=== PATIENT | female | born 1990 | race Caucasian/White ===

== ENCOUNTER 2016-09-06 10:33 | Emergency (ER) | payer SELFPAY ==
[~2016-09-06] VITALS: Ht 172.7 cm; Wt 65.0 kg
[~2016-09-06 10:33] MED LIST: ANAP550T PO; PERI8.6T PO; PRENTAB62 PO; TUMS500C CHEW
[2016-09-06 10:45] VITALS: BP 121/77; PULSE 84; RESP 14; TEMP 98.2; O2SAT 100
[2016-09-06] MEDS ORDERED: SODIUM CHLORIDE 0.9% FLUSH 5 ML FLUSH IVF PRN (11:15)
[2016-09-06] MEDS ORDERED: KETOROLAC TROMETHAMINE 30 MG/ML (IVP) VIAL IVP ONE (11:15)
--- NOTE | 2016-09-06 11:19 | PD ---
HPI Chief Complaint: Abdominal Pain Time Seen by Provider: 10:58 Travel History International Travel<30 days: No Contact w/Intl Traveler<30days: No Traveled to known affect area: No History of Present Illness HPI The patient is a 25-year-old female who presents to the emergency department for right rib pain and right upper quadrant abdominal pain of one month's duration. Patient complains of pain located over the lateral right inferior rib cage and right upper quadrant for one month. The pain is worse with standing upright, deep inspiration, certain movements. Patient denies any trauma to the affected area, however, does complain of shortness of breath secondary to pain with inspiration over the affected side. She denies any anterior chest pain or left-sided chest pain. She denies any nausea, vomiting, or postprandial symptoms. The patient denies any accompanying cough. The patient denies any known history of nephrolithiasis or cholecystitis. Symptoms are mild to moderate, no true alleviating factors, slightly exacerbated by movements and inspiration. PFSH Past Medical History Autoimmune Disease: No Blood Disorders: No Anxiety: No Depression: No Cardiovascular Problems: No Genitourinary: No Musculoskeletal: No Neurologic: No Psychiatric: No Respiratory: No Sickle Cell Disease: No ?: Not LMP: 1 1/2 WKS AGO : 0 Past Surgical History Other Surgery: No Social History Alcohol Use: No Tobacco Use: No Substance Use: No Allergies-Medications (Allergen,Severity, Reaction): Coded Allergies: No Known Allergies (Verified , 09/06/16) Reported Meds & Prescriptions Reported Meds & Active Scripts Active No Active Prescriptions or Reported Medications Review of Systems Except as stated in HPI: all other systems reviewed are Neg General / Constitutional: No: Fever HENT: No: Lightheadedness Cardiovascular: Positive: Chest Pain or Discomfort (right lateral inferior rib pain) Respiratory: No: Cough, Shortness of Breath Gastrointestinal: Positive: Abdominal Pain (right upper quadrant abdominal pain ), No: Nausea, Vomiting, Diarrhea Genitourinary: No: Dysuria, Hematuria Skin: No Rash Physical Exam Narrative GENERAL: Awake, alert, pleasant 25-year-old female who appears her stated age and is in no acute respiratory distress. SKIN: Warm and dry. HEAD: Atraumatic. Normocephalic. EYES: Pupils equal and round. No scleral icterus. No injection or drainage. ENT: No nasal bleeding or discharge. Mucous membranes pink and moist. NECK: Trachea midline. No JVD. CARDIOVASCULAR: Regular rate and rhythm. No murmur appreciated. Mild tenderness of the right lateral inferior ribs, but no visible rash or ecchymosis. No crepitus noted. RESPIRATORY: No accessory muscle use. Clear to auscultation. Breath sounds equal bilaterally. GASTROINTESTINAL: Abdomen soft, mild tenderness right upper quadrant. Back: No CVA tenderness. MUSCULOSKELETAL: No obvious deformities. No clubbing. No cyanosis. No edema. NEUROLOGICAL: Awake and alert. No obvious cranial nerve deficits. Motor grossly within normal limits. Normal speech. PSYCHIATRIC: Appropriate mood and affect; insight and judgment normal. Data Data Last Documented VS Vital Signs Date Time Temp Pulse Resp B/P Pulse Ox O2 Delivery O2 Flow Rate FiO2 09/06/16 12:30 77 20 98/65 97 09/06/16 10:45 98.2 Orders Complete Blood Count With Diff (09/06/16 11:04) Comprehensive Metabolic Panel (09/06/16 11:04) Lipase (09/06/16 11:04) Us Abdomen Gallbladder (09/06/16 ) Iv Access Insert/Monitor (09/06/16 11:04) Ecg Monitoring (09/06/16 11:04) Oximetry (09/06/16 11:04) Sodium Chloride 0.9% Flush (Ns Flush) (09/06/16 11:15) Chest, Single Ap (09/06/16 11:04) Ketorolac Inj (Toradol Inj) (09/06/16 11:15) Labs Laboratory Tests Test 09/06/16 11:10 White Blood Count 6.1 TH/MM3 Red Blood Count 3.98 MIL/MM3 Hemoglobin 12.5 GM/DL Hematocrit 35.9 % Mean Corpuscular Volume 90.2 FL Mean Corpuscular Hemoglobin 31.5 PG Mean Corpuscular Hemoglobin 34.9 % Concent Red Cell Distribution Width 11.6 % Platelet Count 190 TH/MM3 Mean Platelet Volume 8.8 FL Neutrophils (%) (Auto) 68.9 % Lymphocytes (%) (Auto) 24.1 % Monocytes (%) (Auto) 4.2 % Eosinophils (%) (Auto) 2.1 % Basophils (%) (Auto) 0.7 % Neutrophils # (Auto) 4.2 TH/MM3 Lymphocytes # (Auto) 1.5 TH/MM3 Monocytes # (Auto) 0.3 TH/MM3 Eosinophils # (Auto) 0.1 TH/MM3 Basophils # (Auto) 0.0 TH/MM3 CBC Comment DIFF FINAL Differential Comment Sodium Level 139 MEQ/L Potassium Level 3.9 MEQ/L Chloride Level 106 MEQ/L Carbon Dioxide Level 23.2 MEQ/L Anion Gap 10 MEQ/L Blood Urea Nitrogen 14 MG/DL Creatinine 0.75 MG/DL Estimat Glomerular Filtration 96 ML/MIN Rate Random Glucose 93 MG/DL Calcium Level 8.6 MG/DL Total Bilirubin 0.5 MG/DL Aspartate Amino Transf 45 U/L (AST/SGOT) Alanine Aminotransferase 80 U/L (ALT/SGPT) Alkaline Phosphatase 41 U/L Total Protein 7.4 GM/DL Albumin 3.8 GM/DL Lipase 88 U/L [facility] Medical Decision Making Medical Screen Exam Complete: Yes Emergency Medical Condition: Yes Medical Record Reviewed: Yes Interpretation(s) Laboratory Tests Test 09/06/16 11:10 White Blood Count 6.1 TH/MM3 Red Blood Count 3.98 MIL/MM3 Hemoglobin 12.5 GM/DL Hematocrit 35.9 % Mean Corpuscular Volume 90.2 FL Mean Corpuscular Hemoglobin 31.5 PG Mean Corpuscular Hemoglobin 34.9 % Concent Red Cell Distribution Width 11.6 % Platelet Count 190 TH/MM3 Mean Platelet Volume 8.8 FL Neutrophils (%) (Auto) 68.9 % Lymphocytes (%) (Auto) 24.1 % Monocytes (%) (Auto) 4.2 % Eosinophils (%) (Auto) 2.1 % Basophils (%) (Auto) 0.7 % Neutrophils # (Auto) 4.2 TH/MM3 Lymphocytes # (Auto) 1.5 TH/MM3 Monocytes # (Auto) 0.3 TH/MM3 Eosinophils # (Auto) 0.1 TH/MM3 Basophils # (Auto) 0.0 TH/MM3 CBC Comment DIFF FINAL Differential Comment Sodium Level 139 MEQ/L Potassium Level 3.9 MEQ/L Chloride Level 106 MEQ/L Carbon Dioxide Level 23.2 MEQ/L Anion Gap 10 MEQ/L Blood Urea Nitrogen 14 MG/DL Creatinine 0.75 MG/DL Estimat Glomerular Filtration 96 ML/MIN Rate Random Glucose 93 MG/DL Calcium Level 8.6 MG/DL Total Bilirubin 0.5 MG/DL Aspartate Amino Transf 45 U/L (AST/SGOT) Alanine Aminotransferase 80 U/L (ALT/SGPT) Alkaline Phosphatase 41 U/L Total Protein 7.4 GM/DL Albumin 3.8 GM/DL Lipase 88 U/L Chest x-ray reveals normal examination. Ultrasound reveals normal examination. Differential Diagnosis Differential diagnosis includes costochondritis, rib pain, cholecystitis, biliary colic, shingles, hydronephrosis, pleural effusion, pneumonia. Narrative Course IV was established, labs are drawn and sent, and the patient was placed on cardiac telemetry monitoring and continuous pulse oximetry monitoring. The patient was administered Toradol 30 mg intravenously. Chest x-ray was obtained. Ultrasound of the right upper quadrant was ordered. Ultrasound is negative. Chest x-rays unremarkable. Laboratory evaluation reveals mildly elevated LFTs, otherwise unremarkable. Patient is not tachycardic or hypoxic, I doubt pulmonary embolism. Patient most likely have muscle strain/rib strain, therefore, was placed on anti-inflammatories and and a medication for pain. Diagnosis Primary Impression: Rib sprain Qualified Code: S23.41XA - Rib sprain, initial encounter Patient Instructions: General Instructions Additional Instructions: Medications as directed. Follow-up with her primary physician. Return if symptoms worsen or progress. Activity as tolerated. Med/Other Pt SpecificInfo: Prescription(s) given Scripts Hydrocodone-Acetaminophen ([place])5-325 mg Tab1 Tab PO Q6H PRN (PAIN) #20 TAB Ref 0 Prov:Jordon Chanel MD 09/06/16 Ibuprofen 600 Mg Qal140 Mg PO Q6H PRN (Pain/Inflammation) #20 TAB Ref 0 Prov:Jordon Chanel MD 09/06/16 Disposition: 01 DISCHARGE HOME Condition: Stable Jordon Chanel MD Sep 06, 2016 11:19
[2016-09-06 11:20] VITALS: BP 102/63; PULSE 78; RESP 20; O2SAT 97; O2SAT 98
[2016-09-06 11:27] LABS: AUTOMATED NEUTROPHIL # 4.2 TH/MM3 (1.8-7.7); BASOPHIL % 0.7 % (0.0-2.0); EOSINOPHIL # 0.1 TH/MM3 (0-0.4); EOSINOPHIL % 2.1 % (0.0-4.0); HEMATOCRIT 35.9 % (35.0-46.0); HEMO FLAGS DIFF FINAL; LYMPH % 24.1 % (9.0-44.0); LYMPHOCYTE # 1.5 TH/MM3 (1.0-4.8); MEAN CELL VOLUME 90.2 FL (80.0-100.0); MEAN CORPUSCULAR HEMOGLOBIN 31.5 PG (27.0-34.0); MEAN CORPUSCULAR HGB CONC 34.9 % (32.0-36.0); MONO % 4.2 % (0.0-8.0); NEUT % 68.9 % (16.0-70.0); PLATELET COUNT 190 TH/MM3 (150-450); RED BLOOD COUNT 3.98 MIL/MM3 (4.00-5.30); RED CELL DISTRIBUTION WIDTH 11.6 % (11.6-17.2); WHITE BLOOD COUNT 6.1 TH/MM3 (4.0-11.0)
--- NOTE | 2016-09-06 11:35 | RADHPO ---
EXAM DATE/TIME: 09/06/2016 11:25 [facility] COMPARISON: No previous studies available for comparison. INDICATIONS : Right lower chest wall pain for 1 month MEDICAL HISTORY : None. SURGICAL HISTORY : None. ENCOUNTER: Initial ACUITY: 1 month PAIN SCORE: 6/10 LOCATION: Right lower chest FINDINGS: A single view of the chest demonstrates the lungs to be symmetrically aerated without evidence of mas s, infiltrate or effusion. The cardiomediastinal contours are unremarkable. Osseous structures are intact. CONCLUSION: Normal examination. Des Marcus MD on September 06, 2016 at 11:33 Board Certified Radiologist. This report was verified electronically.
[2016-09-06 11:36] LABS: CHLORIDE 106 MEQ/L (98-107); POTASSIUM 3.9 MEQ/L (3.5-5.1); SODIUM (NA) 139 MEQ/L (136-145)
[2016-09-06 11:40] LABS: ANION GAP 10 MEQ/L (5-15); BICARBONATE 23.2 MEQ/L (21.0-32.0); BLOOD UREA NITROGEN 14 MG/DL (7-18)
[2016-09-06 11:43] LABS: ALT (GPT) 80 U/L (10-53)
[2016-09-06 11:44] LABS: AST (GOT) 45 U/L (15-37); GLOMERULAR FILTRATION RATE 96 ML/MIN (>89)
[2016-09-06 11:45] LABS: TOTAL BILIRUBIN ADULT 0.5 MG/DL (0.2-1.0)
[2016-09-06 11:46] LABS: ALKALINE PHOSPHATASE 41 U/L (45-117)
[2016-09-06 12:30] VITALS: BP 98/65; PULSE 77; RESP 20; O2SAT 97
--- NOTE | 2016-09-06 12:52 | RADHPO ---
EXAM DATE/TIME: 09/06/2016 17:05 [facility] COMPARISON: No previous studies available for comparison. INDICATIONS : Right upper quadrant pain. MEDICAL HISTORY : Right upper quadrant pain. SURGICAL HISTORY : None. ENCOUNTER: Initial ACUITY: 1 month PAIN SCORE: 3/10 LOCATION: Right upper quadrant MEASUREMENTS: LIVER: 15.6 cm length COMMON DUCT: 7 mm RIGHT KIDNEY: 12.3 x 4.1 x 5.5 cm FINDINGS: LIVER: Normal echotexture without focal lesion or ductal dilatation. COMMON DUCT: No intraluminal mass or stone visualized. GALLBLADDER: Contains no stones, demonstrates no wall thickening or pericholecystic fluid. PANCREAS: The visualized portions are within normal limits. RIGHT KIDNEY: No evidence of hydronephrosis, stone, or mass. CONCLUSION: Normal examination. Des Marcus MD on September 06, 2016 at 12:50 Board Certified Radiologist. This report was verified electronically.
[2016-09-06] MEDS ORDERED: IBUP-232 PO (13:05)
[2016-09-06] MEDS ORDERED: NORC5TAB PO (13:05)
== END 2016-09-06 13:32 | disposition home or self-care (01) ==
LOC: PHED 10:33
DX: S23.41XA Sprain of ribs, initial encounter (principal); X58.XXXA Exposure to other specified factors, initial encounter
CPT/HCPCS: 71010; 76705; 80053; 83690; 85025; 96374; 99284; J1885